=== PATIENT | male | born 1975 | race African-American/Black ===

== ENCOUNTER 2017-04-05 13:29 | Emergency (ER) | payer MEDICARE, OTHER ==
[~2017-04-05 13:29] MED LIST: BP MED; IBUPROFEN800 MG PO; KLONOPIN PO; LOPRESSOR PO
== END 2017-04-05 15:20 | disposition home or self-care (01) ==
LOC: CFTX 13:29 → CED 13:29 → CFTX 13:35 → CED 15:20
DX: S16.1XXA Strain of muscle, fascia and tendon at neck level, initial encounter (principal); E11.9 Type 2 diabetes mellitus without complications; I10 Essential (primary) hypertension; X58.XXXA Exposure to other specified factors, initial encounter; Y92.9 Unspecified place or not applicable
CPT/HCPCS: 99282

== ENCOUNTER 2017-05-11 13:49 | Emergency (ER) | payer MEDICARE, OTHER ==
--- NOTE | ~2017-05-11 | CT4 ---
[facility] A Service of [facility] RADIOLOGY TEXT RESULTS PATIENT: CAROLANN GRISSOM LOCATION: [facility] : 71 UNIT #: [id number] AGE: [address]: Antonia Dozier SEX: M ORDER DR: [id number] [facility] [address] [place], [place] [address] [id number] MR#: [id number] Acc #: [id number] NAME: CAROLANN GRISSOM. : 1975 SEX: M STUDY DATE/TIME: 05/11/2017 17:19 UNIT: [facility] ROOM: STUDY DESCRIPTION: CT Abd and Pelv Wo Cont Attending Physician: Antonia Dozier Pa-C Ordering Physician: Ed Doctor [id number] [facility] Primary Care Physician: Primary Care Physician No MEDICAL IMAGING REPORT This report is preliminary unless electronic signature is present REVISED REPORT SEE ADDENDUM EXAM CT abdomen and pelvis, 05/11/2017 HISTORY Bilateral flank pain for 3 days. Frequent urination, flank pain front and back. Prior history of cardiac disease, hypertension, diabetes. TECHNIQUE CT abdomen and pelvis performed without administration of oral or intravenous contrast. No prior CTs for comparison. This CT exam was performed with one or more of the following radiation dose reduction techniques: Automatic exposure control, adjustment of mA and/or kV according to patient size, and iterative reconstruction. FINDINGS The lung bases are clear. Inferior heart and pericardium unremarkable. Liver, gallbladder, spleen, pancreas, adrenal glands show a small, 9-mm nodule in the left adrenal gland. In the absence of risk factors, probably benign adenoma though not clearly such on basis of this examination alone. The kidneys show no hydronephrosis or nephrolithiasis. No ureteral calculi or dilatation. Mild and nonspecific stranding in the perinephric fat. Acuity unclear. This could be chronic in time course or could be a reflection of mild bilateral renal inflammation/UTI/pyelonephritis. Please correlate with clinical presentation and urinalysis. There is no perinephric fluid collection. CT PELVIS: No inguinal adenopathy. Urinary bladder unremarkable. No pelvic fluid collection. No pelvic or retroperitoneal adenopathy. Distal esophagus, stomach, small bowel unremarkable. There are calcified phleboliths in the pelvis. There are some chronic soft tissue STS. [facility] A Service [facility] RADIOLOGY TEXT RESULTS PATIENT: CAROLANN GRISSOM LOCATION: [facility] : 71 UNIT #: [id number] AGE: [address]: Antonia Dozier SEX: M ORDER DR: calcifications associated with the penis. The appendix is normal. Colon shows uncomplicated diverticulosis, more pronounced in the ascending colon. Unopacified vascular structures unremarkable. Bony structures show no acute abnormality. IMPRESSION 1. No renal calculi or obstruction. There are very mild perinephric stranding changes bilaterally. Acuity is unclear. These could be chronic in time course. I have no prior studies for comparison. Alternatively, they could represent mild bilateral renal inflammation, as with urinary tract infection or bilateral pyelonephritis. Correlate with clinical presentation and urinalysis. 2. Gallbladder, pancreas, appendix normal. 3. Uncomplicated ascending colon diverticulosis. See remainder of incidental findings in body of report above. Dictated by... Bradley Cooney M.D. THIS IS AN ELECTRONICALLY VERIFIED REPORT Bradley Cooney M.D. at 05/12/2017 12:11 PM CARLEEN/[place] TD: 05/12/2017 01:37 JOB #: [id number] ADDENDUM Indeterminate 9-mm nodule in the body of the left adrenal gland. In absence of risk factors, probably an adenoma but not clearly such on basis of this examination alone. If clinically warranted it could be more fully characterized with adrenal protocol MRI or CT on an elective basis. STAT * RESULT JOB: [id number] Dictated by... Bradley Cooney M.D. THIS IS AN ELECTRONICALLY VERIFIED REPORT Bradley Cooney M.D. at 05/14/2017 9:54 PM CARLEEN/ximena STS. [facility] A Service of [facility] RADIOLOGY TEXT RESULTS PATIENT: CAROLANN GRISSOM [id number] 71 UNIT #: [id number] AGE: [address]: Antonia Dozier SEX: M ORDER DR: TD: 05/11/2017 18:23 JOB #: [id number] CC: Mitali/perryision Please Delete MEDICAL IMAGING REPORT Page 1 of 1 COPY
[2017-05-11 14:34] LABS: URINE SOURCE CLEAN CATCH
[2017-05-11 14:43] LABS: URINE APPEARANCE CLEAR; URINE BILIRUBIN NEG (NEG); URINE BLOOD NEG (NEG); URINE COLOR YELLOW; URINE GLUCOSE >1000 MG/DL (NEG); URINE KETONE NEG (NEG); URINE LEUKOCYTE ESTERASE NEG (NEG); URINE NITRATE NEG (NEG); URINE PH 5.5 (5-8); URINE PROTEIN NEG (NEG); URINE SPECIFIC GRAVITY 1.034 (1.003-1.035); URINE UROBILINOGEN 0.2 MG/DL (NEG)
[2017-05-11 14:49] LABS: CULTURE INDICATED? NO
[2017-05-11 17:03] LABS: BASOPHIL% 0.5 % (0-2.5); EOSINOPHIL# 0.1 X10e3 (0-0.7); EOSINOPHIL% 2.4 % (0.0-7.0); HEMATOCRIT 50.5 % (38.0-50.0); HEMOGLOBIN 16.2 gm/dL (13.0-16.0); LYMPHOCYTE# 2.2 X10e3 (1.0-3.5); LYMPHOCYTE% 41.9 % (17.0-45.0); MEAN CELL VOLUME 96.5 FL (83-96); MEAN CORPUSCULAR HGB CONC 32.1 g/dL (30-36); MEAN PLATELET VOLUME 10.8 FL (6.5-11.5); MONOCYTE# 0.4 X10e3 (0-1.0); MONOCYTE% 8.3 % (3.0-12.0); NEUTROPHIL# 2.5 X10e3 (1.5-7.1); NEUTROPHIL% 46.9 % (40-75); PLATELET COUNT 152 X10e3 (140-420); RED BLOOD COUNT 5.23 X10e (3.90-5.60); RED CELL DISTRIBUTION WIDTH 14.7 % (11.0-15.5); WHITE BLOOD COUNT 5.4 X10e3 (4.0-10.5)
[2017-05-11 17:05] LABS: DIFF IND NO
[2017-05-11 17:24] LABS: ALBUMIN SERUM 4.5 g/dL (3.5-5.0); BILIRUBIN,TOTAL 0.5 mg/dL (0.2-2.0); BUN/CREATININE RATIO 16.66; CALCIUM SERUM 9.2 mg/dL (8.4-10.2); CREATININE SERUM 0.9 mg/dL (0.6-1.4); GLOM FILT RATE Estimated 120.8 mL/min (>60); POTASSIUM 4.2 mmol/L (3.5-5.1); PROTEIN TOTAL SERUM 7.3 g/dL (6.0-8.3)
== END 2017-05-11 18:37 | disposition home or self-care (01) ==
LOC: CED 13:49
PROVIDERS: Physician Assistant
DX: R10.9 Unspecified abdominal pain (principal); I10 Essential (primary) hypertension; E11.9 Type 2 diabetes mellitus without complications
CPT/HCPCS: 74176; 80053; 81003; 85025; 96374; 99284; J1885